=== PATIENT | female | born 1930 | race Caucasian/White ===

== ENCOUNTER 2016-07-16 12:08 | Emergency (ER) | payer MEDICARE, OTHER ==
[~2016-07-16 12:08] MED LIST: /ALEN70TA; /WARF25TA; ACET65TA; PERC5TAB8; PLAV75TA2; SYNT100T; TRAN7.5T; VITAMIN D50000 UNT; ZOCO10TA; [UNRECOGNIZED DRUG - OTHER]; [UNRECOGNIZED DRUG - REMARK]; refresh eye drops
[2016-07-16] MEDS ORDERED: traMADol 50 MG TAB As Ordered ONE (14:38)
--- NOTE | 2016-07-16 14:52 | EDDOCDS ---
Physician Documentation [facility] Name: Priscilla Draper Age: 85 yrs Sex: Female : 1930 Arrival Date: 07/16/2016 Time: 12:08 Bed 7 Private MD: Myrna Bell Disposition: 07/16/16 14:19 Discharged to Home/Self Care. Impression: Pain in thoracic spine. - Condition is Stable. - Discharge Instructions: Back Pain, Adult, Chronic Back Pain. - Prescriptions for Skelaxin 800 mg Oral Tablet - take 0.5 tablet by ORAL route every 8 hours As needed; 20 tablet. Tramadol 50 mg Oral Tablet - take 0.5 tablet by ORAL route 4 times per day MDD: 2 tabs; 10 tablet. - Medication Reconciliation, Local Pharmacy Hours form. - Follow up: Myrna Bell; When: 4 - 5 days; Reason: Recheck today's complaints, Continuance of care. - Problem is an ongoing problem. - Symptoms are unchanged. Historical: - Allergies: Aspirin; Codeine Phosphate; - Home Meds: 1. furosemide 20 mg Oral tab 1 tab once daily (Last dose: 06/15/2016) 2. Vitamin D Oral 1,000 unit daily (Last dose: 07/16/2016 08:00) 3. clorazepate dipotassium 3.75 mg oral tab 1 tab 2 times per day (Last dose: 07/16/2016 07:00) 4. perphenazine-amitriptyline 2-25 mg oral tab 1 tab 2 times per day (Last dose: 07/16/2016 07:00) 5. refresh 1% eye drops as needed (Last dose: 07/16/2016 08:00) 6. Tylenol 325 mg Oral tab 1 tab every 4 hours (Last dose: 07/15/2016) 7. Synthroid 75 mcg Oral tab 1 tab once daily (Last dose: 07/16/2016 07:00) - PMHx: Anxiety; Hypercholesterolemia; aortic valve disorder; - PSHx: Thyroidectomy; Hysterectomy; - Social history: Smoking status: Patient states former smoker of tobacco. Patient/guardian denies using alcohol, street drugs, No barriers to communication noted, The patient speaks fluent [place], Speaks appropriately for age. - Family history: Not pertinent. - : The pt / caregiver states he / she is not on anticoagulants. Home medication list is obtained from the patient. - Exposure Risk Screening:: None identified. Vital Signs: 07/16 12:10 BP 196 / 88; Pulse 83; Resp 18; Temp 98.0(O); Pulse Ox 100% ; Weight 63.5 kg / 139.99 elp lbs; Height 4 ft. 11 in. (149.86 cm); Pain 7/10; 12:10 Body Mass Index 28.28 (63.50 kg, 149.86 cm) elp MDM: 12:44 UA Ordered. EDMS 12:56 UA Reviewed. sd1 14:31 traMADol 25 mg PO once ordered. ke Administered Medications: 14:48 Drug: traMADol 25 mg [tramadol 50 mg tablet (0.5 tabs)] Route: PO; dls 14:51 Follow up: Response: Pt left department before re-evaluation is appropriate dls Signatures: Dispatcher [employer] EDShaila Carvalho MD MD sd1 Lucila Gutierrez, RN RN dls Robert Dudley FNP FNP ke Conner, Teresa RN RN ttb ROSSY
--- NOTE | 2016-07-16 14:52 | EDDOCDS ---
Nurse's Notes [facility] Name: Priscilla Draper Age: 85 yrs Sex: Female : 1930 Arrival Date: 07/16/2016 Time: 12:08 Bed 7 Private MD: Myrna Bell Diagnosis: Pain in thoracic spine Presentation: 07/16 12:20 Presenting complaint: Patient states: left sided flank/back pain x2 weeks. Denies ttb injury. + urinary frequency. Acute neurological deficits are not present. Mechanism of Injury: No Mechanism of Injury. Adult Sepsis Screening: The patient does not have new or worsening altered mentation. Patient's respiratory rate is less than 22. Systolic blood pressure is greater than 100. Patient has a qSOFA score of 0- Negative Sepsis Screen. Suicide/Homicide risk assessment- the patient denies having any suicidal and/or homicidal ideations and does not present with any other emotional, behavioral or mental health complaints. Status: Patient is not a guest services or dependent. Transition of care: patient was not received from another setting of care. 12:20 Acuity: SUDHAKAR Level 3 ttb 12:20 Method Of Arrival: Walkin/Carried/Asstd ttb Triage Assessment: 12:26 General: Appears in no apparent distress, well nourished, well groomed, Behavior is ttb appropriate for age, cooperative, pleasant. Pain: Location: left flank/lower back Pain currently is 7 out of 10 on a pain scale. Quality of pain is described as aching. Neurological: Level of Consciousness is awake, alert. Cardiovascular: Chest pain is denied. Respiratory: No deficits noted. Airway is patent Respiratory effort is even, unlabored, Denies cough, shortness of breath. GI: Denies nausea, vomiting, pain. : Reports urinary frequency. Derm: Skin is normal. Musculoskeletal: Range of motion intact in all extremities. Injury Description: No known injury. Historical: - Allergies: Aspirin; Codeine Phosphate; - Home Meds: 1. furosemide 20 mg Oral tab 1 tab once daily (Last dose: 06/15/2016) 2. Vitamin D Oral 1,000 unit daily (Last dose: 07/16/2016 08:00) 3. clorazepate dipotassium 3.75 mg oral tab 1 tab 2 times per day (Last dose: 07/16/2016 07:00) 4. perphenazine-amitriptyline 2-25 mg oral tab 1 tab 2 times per day (Last dose: 07/16/2016 07:00) 5. refresh 1% eye drops as needed (Last dose: 07/16/2016 08:00) 6. Tylenol 325 mg Oral tab 1 tab every 4 hours (Last dose: 07/15/2016) 7. Synthroid 75 mcg Oral tab 1 tab once daily (Last dose: 07/16/2016 07:00) - PMHx: Anxiety; Hypercholesterolemia; aortic valve disorder; - PSHx: Thyroidectomy; Hysterectomy; - Social history: Smoking status: Patient states former smoker of tobacco. Patient/guardian denies using alcohol, street drugs, No barriers to communication noted, The patient speaks fluent Bermudian, Speaks appropriately for age. - Family history: Not pertinent. - : The pt / caregiver states he / she is not on anticoagulants. Home medication list is obtained from the patient. - Exposure Risk Screening:: None identified. Screenin:49 Screening information is obtained from the patient. Fall risk: No risks identified. dls Assistance ADL's: requires no assistance with activities of daily living. Abuse/DV Screen: The patient / caregiver reports he/she is: not in a situation that causes fear, pain or injury. Nutritional screening: No deficits noted. Advance Directives: Currently, there is no health care proxy. There is no active DNR order. There is no living will. There is no Power of Senior [employer]. Advance directive information has not previously been placed in an [facility] medical record. home support is adequate. Assessment: 13:24 General: Appears in no apparent distress, comfortable, Behavior is appropriate for age, ms18 cooperative. Neurological: Level of Consciousness is awake, alert, obeys commands, Oriented to person, place, time. Respiratory: Airway is patent Respiratory effort is even, unlabored. Derm: Skin is pink, warm & dry. normal. Vital Signs: 12:10 BP 196 / 88; Pulse 83; Resp 18; Temp 98.0(O); Pulse Ox 100% ; Weight 63.5 kg; Height 4 elp ft. 11 in. (149.86 cm); Pain 7/10; 12:10 Body Mass Index 28.28 (63.50 kg, 149.86 cm) elp Vitals: 12:10 Log In Time: July 16, 2016 at 12:08. elp ED Course: 12:10 Patient visited by Akanksha Pierre PCA. elp 12:10 Myrna Bell is Private Physician. elp 12:10 Patient moved to Waiting elp 12:12 Patient visited by Akanksha Pierre PCA. elp 12:12 Patient moved to Pre RCE elp 12:21 Triage Initiated ttb 12:28 Patient visited by Criselda Monique RN. ttb 13:15 Patient moved to Triage 2 ms18 13:24 Patient visited by Virgen Luna,PLACIDO. ms18 13:34 Patient moved to 7 mlb1 13:55 Patient visited by Sonia Schuler PCA. jlf 14:03 [facility] ke 14:03 Patient visited by Robert Dudley FNP. ke 14:03 Patient visited by Robert Dudley FNP. ke 14:18 Myrna Bell is Referral Physician. ke 14:49 The patient / caregiver is instructed regarding the plan of care and ED course. Patient dls has correct armband on for positive identification. Bed in low position. Call light in reach. 14:49 No IV's were initiated during this patient's visit. No procedures done that require dls assistance. Administered Medications: 14:48 Drug: traMADol 25 mg [tramadol 50 mg tablet (0.5 tabs)] Route: PO; dls 14:51 Follow up: Response: Pt left department before re-evaluation is appropriate dls Order Results: Lab Order: UA; SPEC'M 07/16/16 12:30 Test: APPEARANCE, URINE; Value: CLEAR; Range: CLEAR; Status: F Test: COLOR, URINE; Value: STRAW; Range: YELLOW; Status: F Test: PH,URINE; Value: 7.0; Range: 5.0-9.0; Units: UNITS; Status: F Test: SPECIFIC GRAVITY URINE AUTO; Value: 1.003; Range: 1.002-1.035; Status: F Test: PROTEIN, URINE AUTO; Value: NEGATIVE; Range: NEGATIVE; Units: mg/dL; Status: F Test: GLUCOSE, URINE (UA) AUTO; Value: NEGATIVE; Range: NEGATIVE; Units: mg/dL; Status: F Test: KETONE, URINE AUTO; Value: NEGATIVE; Range: NEGATIVE; Units: mg/dL; Status: F Test: UROBILINOGEN, URINE AUTO; Value: 0.2; Range: 0.0-2.0; Units: mg/dL; Status: F Test: BILIRUBIN, URINE AUTO; Value: NEGATIVE; Range: NEGATIVE; Status: F Test: NITRITE, URINE AUTO; Value: NEGATIVE; Range: NEGATIVE; Status: F Test: LEUKOCYTE ESTERASE, URINE AUTO; Value: NEGATIVE; Range: NEGATIVE; Status: F Test: BLOOD, URINE BLOOD; Value: 1+; Range: NEGATIVE; Abnormal: Above high normal; Status: F Test: WBC, URINE AUTO; Value: 1; Range: 0-3; Units: /HPF; Status: F Test: RBC, URINE AUTO; Value: 0; Range: 0-3; Units: /HPF; Status: F Test: BACTERIA, URINE AUTO; Value: NEGATIVE; Range: NEGATIVE; Status: F Test: SQUAMOUS EPITHELIAL CELL UR AU; Value: 0; Range: 0-6; Units: /HPF; Status: F Test: HYALINE CAST, URINE AUTO; Value: 0; Range: 0-1; Units: /LPF; Status: F Outcome: 14:19 Discharge ordered by Provider. 14:49 Discharge Assessment: Patient awake, alert and oriented x 3. No cognitive and/or dls functional deficits noted. Patient verbalized understanding of disposition instructions. patient administered narcotics - yes. Pt provided with safe discharge. The following High Risk Discharge criteria are identified: None. Discharged to home ambulatory, with family. Condition: stable. Discharge instructions given to patient. No special radiology studies were completed. Property sent home with patient. 14:51 Patient left the ED. dls Signatures: Lucila Gutierrez, RN RN Robert Davis, WINDOW DRAPER WINDOW DRAPER Ian Wagn RN RN mlb1 Criselda Monique RN RN ttb Akanksha Pierre, ENROBING MACHINE CORDER ENROBING MACHINE CORDER Sonia Cheney, ENROBING MACHINE CORDER ENROBING MACHINE CORDER jlf Virgen Luna RN RN ms18 MTDD
--- NOTE | 2016-07-18 15:52 | EDDOCDS ---
Physician Documentation [facility] Name: Priscilla Draper Age: 85 yrs Sex: Female : 1930 Arrival Date: 07/16/2016 Time: 12:08 Bed 7 Private MD: Myrna Bell Disposition: 07/16/16 14:19 Discharged to Home/Self Care. Impression: Pain in thoracic spine. - Condition is Stable. - Discharge Instructions: Back Pain, Adult, Chronic Back Pain. - Prescriptions for Skelaxin 800 mg Oral Tablet - take 0.5 tablet by ORAL route every 8 hours As needed; 20 tablet. Tramadol 50 mg Oral Tablet - take 0.5 tablet by ORAL route 4 times per day MDD: 2 tabs; 10 tablet. - Medication Reconciliation, Local Pharmacy Hours form. - Follow up: Myrna Bell; When: 4 - 5 days; Reason: Recheck today's complaints, Continuance of care. - Problem is an ongoing problem. - Symptoms are unchanged. Historical: - Allergies: Aspirin; Codeine Phosphate; - Home Meds: 1. furosemide 20 mg Oral tab 1 tab once daily (Last dose: 06/15/2016) 2. Vitamin D Oral 1,000 unit daily (Last dose: 07/16/2016 08:00) 3. clorazepate dipotassium 3.75 mg oral tab 1 tab 2 times per day (Last dose: 07/16/2016 07:00) 4. perphenazine-amitriptyline 2-25 mg oral tab 1 tab 2 times per day (Last dose: 07/16/2016 07:00) 5. refresh 1% eye drops as needed (Last dose: 07/16/2016 08:00) 6. Tylenol 325 mg Oral tab 1 tab every 4 hours (Last dose: 07/15/2016) 7. Synthroid 75 mcg Oral tab 1 tab once daily (Last dose: 07/16/2016 07:00) - PMHx: Anxiety; Hypercholesterolemia; aortic valve disorder; - PSHx: Thyroidectomy; Hysterectomy; - Social history: Smoking status: Patient states former smoker of tobacco. Patient/guardian denies using alcohol, street drugs, No barriers to communication noted, The patient speaks fluent [place], Speaks appropriately for age. - Family history: Not pertinent. - : The pt / caregiver states he / she is not on anticoagulants. Home medication list is obtained from the patient. - Exposure Risk Screening:: None identified. Vital Signs: 07/16 12:10 BP 196 / 88; Pulse 83; Resp 18; Temp 98.0(O); Pulse Ox 100% ; Weight 63.5 kg / 139.99 elp lbs; Height 4 ft. 11 in. (149.86 cm); Pain 7/10; 12:10 Body Mass Index 28.28 (63.50 kg, 149.86 cm) elp MDM: 12:44 UA Ordered. EDMS 12:56 UA Reviewed. sd1 14:31 traMADol 25 mg PO once ordered. june 15:46 [facility] Payment Agreement was scanned into [employer] and attached to record. jp5 15:47 Financial registration complete. jp5 07/17 06:43 T-Sheet-- Draft Copy was scanned into [employer] and attached to record. hs2 Administered Medications: 07/16 14:48 Drug: traMADol 25 mg [tramadol 50 mg tablet (0.5 tabs)] Route: PO; dls 14:51 Follow up: Response: Pt left department before re-evaluation is appropriate dls Signatures: Dispatcher [employer] EDMI Shaila Kinney MD MD sd1 Lucila Gutierrez, RN RN dls Robert Dudley FNP FNP ke Conner, Teresa RN RN ttb Reggie Tuttle jp5 Argentina Watts, Reg Reg hs2 The chart was reviewed and I authenticate all verbal orders and agree with the evaluation and treatment provided.Attachments: 15:46 [facility] Payment Agreement jp5 07/17 06:43 T-Sheet-- Draft Copy hs2 Chart Complete MTDD
--- NOTE | 2016-07-18 15:52 | EDDOCDS ---
Nurse's Notes [facility] Name: Priscilla Draper Age: 85 yrs Sex: Female : 1930 Arrival Date: 07/16/2016 Time: 12:08 Bed 7 Private MD: Myrna Bell Diagnosis: Pain in thoracic spine Presentation: 07/16 12:20 Presenting complaint: Patient states: left sided flank/back pain x2 weeks. Denies ttb injury. + urinary frequency. Acute neurological deficits are not present. Mechanism of Injury: No Mechanism of Injury. Adult Sepsis Screening: The patient does not have new or worsening altered mentation. Patient's respiratory rate is less than 22. Systolic blood pressure is greater than 100. Patient has a qSOFA score of 0- Negative Sepsis Screen. Suicide/Homicide risk assessment- the patient denies having any suicidal and/or homicidal ideations and does not present with any other emotional, behavioral or mental health complaints. Status: Patient is not a director agricultural services or dependent. Transition of care: patient was not received from another setting of care. 12:20 Acuity: SUDHAKAR Level 3 ttb 12:20 Method Of Arrival: Walkin/Carried/Asstd ttb Triage Assessment: 12:26 General: Appears in no apparent distress, well nourished, well groomed, Behavior is ttb appropriate for age, cooperative, pleasant. Pain: Location: left flank/lower back Pain currently is 7 out of 10 on a pain scale. Quality of pain is described as aching. Neurological: Level of Consciousness is awake, alert. Cardiovascular: Chest pain is denied. Respiratory: No deficits noted. Airway is patent Respiratory effort is even, unlabored, Denies cough, shortness of breath. GI: Denies nausea, vomiting, pain. : Reports urinary frequency. Derm: Skin is normal. Musculoskeletal: Range of motion intact in all extremities. Injury Description: No known injury. Historical: - Allergies: Aspirin; Codeine Phosphate; - Home Meds: 1. furosemide 20 mg Oral tab 1 tab once daily (Last dose: 06/15/2016) 2. Vitamin D Oral 1,000 unit daily (Last dose: 07/16/2016 08:00) 3. clorazepate dipotassium 3.75 mg oral tab 1 tab 2 times per day (Last dose: 07/16/2016 07:00) 4. perphenazine-amitriptyline 2-25 mg oral tab 1 tab 2 times per day (Last dose: 07/16/2016 07:00) 5. refresh 1% eye drops as needed (Last dose: 07/16/2016 08:00) 6. Tylenol 325 mg Oral tab 1 tab every 4 hours (Last dose: 07/15/2016) 7. Synthroid 75 mcg Oral tab 1 tab once daily (Last dose: 07/16/2016 07:00) - PMHx: Anxiety; Hypercholesterolemia; aortic valve disorder; - PSHx: Thyroidectomy; Hysterectomy; - Social history: Smoking status: Patient states former smoker of tobacco. Patient/guardian denies using alcohol, street drugs, No barriers to communication noted, The patient speaks fluent Lebanese, Speaks appropriately for age. - Family history: Not pertinent. - : The pt / caregiver states he / she is not on anticoagulants. Home medication list is obtained from the patient. - Exposure Risk Screening:: None identified. Screenin:49 Screening information is obtained from the patient. Fall risk: No risks identified. dls Assistance ADL's: requires no assistance with activities of daily living. Abuse/DV Screen: The patient / caregiver reports he/she is: not in a situation that causes fear, pain or injury. Nutritional screening: No deficits noted. Advance Directives: Currently, there is no health care proxy. There is no active DNR order. There is no living will. There is no Power of Forwarder Operator. Advance directive information has not previously been placed in an [facility] medical record. home support is adequate. Assessment: 13:24 General: Appears in no apparent distress, comfortable, Behavior is appropriate for age, ms18 cooperative. Neurological: Level of Consciousness is awake, alert, obeys commands, Oriented to person, place, time. Respiratory: Airway is patent Respiratory effort is even, unlabored. Derm: Skin is pink, warm & dry. normal. Vital Signs: 12:10 BP 196 / 88; Pulse 83; Resp 18; Temp 98.0(O); Pulse Ox 100% ; Weight 63.5 kg; Height 4 elp ft. 11 in. (149.86 cm); Pain 7/10; 12:10 Body Mass Index 28.28 (63.50 kg, 149.86 cm) elp Vitals: 12:10 Log In Time: July 16, 2016 at 12:08. elp ED Course: 12:10 Patient visited by Akanksha Pierre PCA. elp 12:10 Myrna Bell is Private Physician. elp 12:10 Patient moved to Waiting elp 12:12 Patient visited by Akanksha Pierre PCA. elp 12:12 Patient moved to Pre RCE elp 12:21 Triage Initiated ttb 12:28 Patient visited by Criselda Monique, PLACIDO. ttb 13:15 Patient moved to Triage 2 ms18 13:24 Patient visited by Virgen Luna,PLACIDO. ms18 13:34 Patient moved to 7 mlb1 13:55 Patient visited by Sonia Schuler PCA. jlf 14:03 [facility] Dud[facility]. ke 14:03 Patient visited by Robert Dudley FNP. ke 14:03 Patient visited by Robert Dudley FNP. ke 14:18 Myrna Bell is Referral Physician. ke 14:49 The patient / caregiver is instructed regarding the plan of care and ED course. Patient dls has correct armband on for positive identification. Bed in low position. Call light in reach. 14:49 No IV's were initiated during this patient's visit. No procedures done that require dls assistance. 15:46 [facility] [place] Payment Agreement was scanned into [employer] and attached to record. jp5 07/17 06:43 T-Sheet-- Draft Copy was scanned into [employer] and attached to record. hs2 Administered Medications: 07/16 14:48 Drug: traMADol 25 mg [tramadol 50 mg tablet (0.5 tabs)] Route: PO; dls 14:51 Follow up: Response: Pt left department before re-evaluation is appropriate dls Order Results: Lab Order: UA; SPEC'M 07/16/16 12:30 Test: APPEARANCE, URINE; Value: CLEAR; Range: CLEAR; Status: F Test: COLOR, URINE; Value: STRAW; Range: YELLOW; Status: F Test: PH,URINE; Value: 7.0; Range: 5.0-9.0; Units: UNITS; Status: F Test: SPECIFIC GRAVITY URINE AUTO; Value: 1.003; Range: 1.002-1.035; Status: F Test: PROTEIN, URINE AUTO; Value: NEGATIVE; Range: NEGATIVE; Units: mg/dL; Status: F Test: GLUCOSE, URINE (UA) AUTO; Value: NEGATIVE; Range: NEGATIVE; Units: mg/dL; Status: F Test: KETONE, URINE AUTO; Value: NEGATIVE; Range: NEGATIVE; Units: mg/dL; Status: F Test: UROBILINOGEN, URINE AUTO; Value: 0.2; Range: 0.0-2.0; Units: mg/dL; Status: F Test: BILIRUBIN, URINE AUTO; Value: NEGATIVE; Range: NEGATIVE; Status: F Test: NITRITE, URINE AUTO; Value: NEGATIVE; Range: NEGATIVE; Status: F Test: LEUKOCYTE ESTERASE, URINE AUTO; Value: NEGATIVE; Range: NEGATIVE; Status: F Test: BLOOD, URINE BLOOD; Value: 1+; Range: NEGATIVE; Abnormal: Above high normal; Status: F Test: WBC, URINE AUTO; Value: 1; Range: 0-3; Units: /HPF; Status: F Test: RBC, URINE AUTO; Value: 0; Range: 0-3; Units: /HPF; Status: F Test: BACTERIA, URINE AUTO; Value: NEGATIVE; Range: NEGATIVE; Status: F Test: SQUAMOUS EPITHELIAL CELL UR AU; Value: 0; Range: 0-6; Units: /HPF; Status: F Test: HYALINE CAST, URINE AUTO; Value: 0; Range: 0-1; Units: /LPF; Status: F Outcome: 14:19 Discharge ordered by Provider. 14:49 Discharge Assessment: Patient awake, alert and oriented x 3. No cognitive and/or dls functional deficits noted. Patient verbalized understanding of disposition instructions. patient administered narcotics - yes. Pt provided with safe discharge. The following High Risk Discharge criteria are identified: None. Discharged to home ambulatory, with family. Condition: stable. Discharge instructions given to patient. No special radiology studies were completed. Property sent home with patient. 14:51 Patient left the ED. dls Signatures: Lucila Gutierrez RN RN Robert Davis, ADOPTION WORKER ADOPTION WORKER Ian Wang RN RN mlb1 Criselda Monique RN RN ttb Akanksha Pierre, PROFESSOR OF CRIMINAL JUSTICE PROFESSOR OF CRIMINAL JUSTICE elp Sonia Schuler, PROFESSOR OF CRIMINAL JUSTICE PROFESSOR OF CRIMINAL JUSTICE antoniaf Virgen Luna RN RN ms18 Reggie Tuttle 5 Argentina Watts, Reg Reg hs2 Chart Complete MTDD
--- NOTE | 2016-07-18 15:52 | EDDOCDS ---
Physician Documentation [facility] Name: Priscilla Draper Age: 85 yrs Sex: Female : 1930 Arrival Date: 07/16/2016 Time: 12:08 Bed 7 Private MD: Myrna Bell Disposition: 07/16/16 14:19 Discharged to Home/Self Care. Impression: Pain in thoracic spine. - Condition is Stable. - Discharge Instructions: Back Pain, Adult, Chronic Back Pain. - Prescriptions for Skelaxin 800 mg Oral Tablet - take 0.5 tablet by ORAL route every 8 hours As needed; 20 tablet. Tramadol 50 mg Oral Tablet - take 0.5 tablet by ORAL route 4 times per day MDD: 2 tabs; 10 tablet. - Medication Reconciliation, Local Pharmacy Hours form. - Follow up: Myrna Bell; When: 4 - 5 days; Reason: Recheck today's complaints, Continuance of care. - Problem is an ongoing problem. - Symptoms are unchanged. Historical: - Allergies: Aspirin; Codeine Phosphate; - Home Meds: 1. furosemide 20 mg Oral tab 1 tab once daily (Last dose: 06/15/2016) 2. Vitamin D Oral 1,000 unit daily (Last dose: 07/16/2016 08:00) 3. clorazepate dipotassium 3.75 mg oral tab 1 tab 2 times per day (Last dose: 07/16/2016 07:00) 4. perphenazine-amitriptyline 2-25 mg oral tab 1 tab 2 times per day (Last dose: 07/16/2016 07:00) 5. refresh 1% eye drops as needed (Last dose: 07/16/2016 08:00) 6. Tylenol 325 mg Oral tab 1 tab every 4 hours (Last dose: 07/15/2016) 7. Synthroid 75 mcg Oral tab 1 tab once daily (Last dose: 07/16/2016 07:00) - PMHx: Anxiety; Hypercholesterolemia; aortic valve disorder; - PSHx: Thyroidectomy; Hysterectomy; - Social history: Smoking status: Patient states former smoker of tobacco. Patient/guardian denies using alcohol, street drugs, No barriers to communication noted, The patient speaks fluent Fijian, Speaks appropriately for age. - Family history: Not pertinent. - : The pt / caregiver states he / she is not on anticoagulants. Home medication list is obtained from the patient. - Exposure Risk Screening:: None identified. Vital Signs: 07/16 12:10 BP 196 / 88; Pulse 83; Resp 18; Temp 98.0(O); Pulse Ox 100% ; Weight 63.5 kg / 139.99 elp lbs; Height 4 ft. 11 in. (149.86 cm); Pain 7/10; 12:10 Body Mass Index 28.28 (63.50 kg, 149.86 cm) elp MDM: 12:44 UA Ordered. EDMS 12:56 UA Reviewed. sd1 14:31 traMADol 25 mg PO once ordered. june 15:46 [facility] Payment Agreement was scanned into [employer] and attached to record. jp5 15:47 Financial registration complete. jp5 07/17 06:43 T-Sheet-- Draft Copy was scanned into [employer] and attached to record. hs2 Administered Medications: 07/16 14:48 Drug: traMADol 25 mg [tramadol 50 mg tablet (0.5 tabs)] Route: PO; dls 14:51 Follow up: Response: Pt left department before re-evaluation is appropriate dls Signatures: Dispatcher [employer] EDLA Shaila Kinney MD MD sd1 Lucila Gutierrez, RN RN dls Robert Dudley FNP FNP ke Conner, Teresa RN RN ttb Reggie Tuttle jp5 Argentina Watts, Reg Reg hs2 The chart was reviewed and I authenticate all verbal orders and agree with the evaluation and treatment provided.Attachments: 15:46 [facility] Payment Agreement jp5 07/17 06:43 T-Sheet-- Draft Copy hs2 Chart Complete MTDD
== END 2016-07-16 14:51 | disposition home or self-care (01) ==
LOC: M ED 12:08
DX: M54.9 Dorsalgia, unspecified (principal); F41.9 Anxiety disorder, unspecified; E78.00 Pure hypercholesterolemia, unspecified; I35.8 Other nonrheumatic aortic valve disorders; Z87.891 Personal history of nicotine dependence; Z79.899 Other long term (current) drug therapy; Z88.6 Allergy status to analgesic agent; Z88.5 Allergy status to narcotic agent

== ENCOUNTER 2016-12-11 08:44 | Emergency (ER) | payer MEDICARE, OTHER ==
[~2016-12-11] VITALS: Ht 147.3 cm; Wt 63.0 kg
[~2016-12-11 08:44] MED LIST changes: -[UNRECOGNIZED DRUG - OTHER]; +[UNRECOGNIZED DRUG - OTHER] PO
[2016-12-11] MEDS ORDERED: LEVO75TA4 PO (09:14)
[2016-12-11] MEDS ORDERED: CLOR37TA PO (09:14)
[2016-12-11] MEDS ORDERED: VITA2000 PO (09:18)
[2016-12-11 10:38] LABS: EOS # 0.2 K/mm3 (0.0-0.50); LARGE UNSTAINED CELL # 0.2 K/mm3 (0.0-0.4); LARGE UNSTAINED CELL % 2.8 % (0.0-4.0); LYMPH # 1.6 K/mm3 (1.5-4.5); LYMPH % 28.3 % (24.0-44.0); MEAN CORPUSCULAR HEMOGLOBIN 32.1 pg (27.0-33.0); MEAN CORPUSCULAR HGB CONC 33.9 g/dl (32.0-36.5); MEAN CORPUSCULAR VOLUME 94.8 fl (80.0-96.0); MONO # 0.4 K/mm3 (0.0-0.8); MONO % 8.3 % (0.0-5.0); NEUTROPHILS % 56.6 % (36.0-66.0); PLATELET COUNT, AUTOMATED 265 k/mm3 (150-450); RED CELL DISTRIBUTION WIDTH 12.4 % (11.5-14.5); WHITE BLOOD COUNT 5.3 K/mm3 (4.0-10.0)
--- NOTE | 2016-12-11 11:22 | REP ---
Clinical: Dizziness. Comparison: 01/20/2015 . Findings: Age-related atrophy and microvascular ischemic changes are appreciated. The ventricles and sulci are symmetric. Molina-white differentiation is maintained. There is no evidence for acute intracranial hemorrhage, mass/mass effect, pathology or infarction. No extra-axial fluid collection. Calvarium is intact. Paranasal sinuses and mastoid air cells are clear. Impression: Age related atrophy and microvascular ischemic changes. No acute intracranial hemorrhage, infarction, or mass/mass effect. Signed by Dale Cruz MD 12/11/2016 11:14 A
--- NOTE | 2016-12-11 11:37 | REP ---
Clinical: Chest pain with crackles . Comparison: 12/31/2015 . Findings: The mediastinum and cardiac silhouette are stable and within normal limits for portable technique. The lung casiano are clear without acute consolidation, effusion, or pneumothorax. Skeletal structures are intact. Impression: No focal consolidation or acute cardiopulmonary process appreciated. Signed by Dale Cruz MD 12/11/2016 11:28 A
[2016-12-11 13:51] VITALS: BP 135/78
--- NOTE | 2016-12-11 22:11 | ECGEPIP ---
Stationary ECG Study [facility] Test Date: 2016-12-11 Pat Name: VELMA GOMEZ Department: Room: - Gender: F Supervisor Rides: ifeanyi : 1930 Requested By: PEDRITO CLARK Order Number: [id number] Reading MD: Geraldo Luke Measurements Intervals [place] Rate: 59 P: 39 DE: 155 QRS: 53 QRSD: 98 T: 54 QT: 441 QTc: 437 Interpretive Statements SINUS BRADYCARDIA COMPARED TO THE LAST 4 TRACINGS IN THE SYSTEM, HEART RATE IS SLOWER OTHERWISE NO SIGNIFICANT CHANGES Electronically Signed On 12-11-2016 22:11:20 EDT by Geraldo Luke
== END 2016-12-11 13:51 | disposition home or self-care (01) ==
LOC: M ED 10:39
DX: R00.1 Bradycardia, unspecified (principal); Z79.899 Other long term (current) drug therapy; Z88.8 Allergy status to other drugs, medicaments and biological substances; Z88.5 Allergy status to narcotic agent

== ENCOUNTER → 2018-02-20 | Outpatient (CLI) | payer MEDICARE, OTHER | LOC: M ADAMS 13:02 | DX: M25.561 Pain in right knee (principal); M79.671 Pain in right foot | CPT/HCPCS: 73564 ==

== ENCOUNTER 2018-10-02 20:29 | Emergency (ER) | payer MEDICARE, OTHER ==
[~2018-10-02 20:29] MED LIST changes: +CLOR37TA PO; +LEVO75TA4 PO; +PROT1TAB2 PO; +TRIA2TA PO; +VITA2000 PO
[2018-10-02] MEDS ORDERED: ALPRAZolam 0.25 MG TAB PO ONE (21:30)
[2018-10-02] MEDS ORDERED: XANA0.25 PO (22:31)
[2018-10-02 22:39] VITALS: BP 144/70
== END 2018-10-02 23:14 | disposition home or self-care (01) ==
LOC: M ED 20:29
DX: F41.9 Anxiety disorder, unspecified (principal); Z79.899 Other long term (current) drug therapy; Z79.890 Hormone replacement therapy; Z88.5 Allergy status to narcotic agent; Z88.8 Allergy status to other drugs, medicaments and biological substances

== ENCOUNTER 2018-10-07 13:06 | Emergency (ER) | payer MEDICARE, OTHER ==
[~2018-10-07] VITALS: Ht 149.9 cm; Wt 53.2 kg
[~2018-10-07 13:06] MED LIST changes: -/WARF25TA; +COUM1TAB18; +XANA0.25 PO
[2018-10-07] MEDS ORDERED: CLOR37TA PO ×2 (14:11→14:27)
[2018-10-07] MEDS ORDERED: ALPRAZolam 0.5 MG TAB PO ONE (14:15)
[2018-10-07 15:11] VITALS: BP 189/84
== END 2018-10-07 15:21 | disposition home or self-care (01) ==
LOC: EDBD 13:06 → M ED 13:06 → EDUNIT# 13:06 → M ED 15:21
DX: F41.1 Generalized anxiety disorder (principal); R51 Headache; E07.9 Disorder of thyroid, unspecified; Z87.891 Personal history of nicotine dependence; Z88.5 Allergy status to narcotic agent; Z88.8 Allergy status to other drugs, medicaments and biological substances; Z79.899 Other long term (current) drug therapy

== ENCOUNTER → 2018-12-16 | Outpatient (REF) | payer MEDICARE, OTHER | LOC: M LAB REF 19:39 | PROVIDERS: ATTEND Physician Assistant | DX: N39.0 Urinary tract infection, site not specified (principal) ==

== ENCOUNTER 2019-04-25 15:17 | Emergency (ER) | payer MEDICARE, OTHER ==
[~2019-04-25] VITALS: Ht 149.9 cm; Wt 53.6 kg
[2019-04-25] MEDS ORDERED: LORazepam 2 MG/ML VIAL (J2060) IV STA (16:07)
[2019-04-25] MEDS ORDERED: NS 1,000 ML IV SCH (16:07)
--- NOTE | 2019-04-25 16:40 | REP ---
Portable chest, 04:22 p.m., single AP view with the patient upright: Comparison is 12/11/2016. There is diffuse interstitial coarsening, unchanged, compatible with fibrosis. There are no infiltrates, effusions, nodules or masses. Cardial mediastinal silhouette and skeletal structures are unremarkable. Impression: Chronic interstitial coarsening compatible with fibrosis. No acute cardiopulmonary findings. Electronically Signed by Jw Rodriguez MD 04/25/2019 04:32 P
[2019-04-25 16:47] LABS: BASO # 0.1 10^3/uL (0.0-0.2); EOS # 0.4 10^3/uL (0.0-0.5); EOS % 5.7 % (0.0-3.0); HEMATOCRIT 41.4 % (36.0-47.0); HEMOGLOBIN 14.2 g/dl (12.0-15.5); LYMPH # 2.4 10^3/uL (1.5-5.0); LYMPH % 30.7 % (24.0-44.0); MEAN CORPUSCULAR HEMOGLOBIN 32.3 pg (27.0-33.0); MEAN CORPUSCULAR HGB CONC 34.3 g/dl (32.0-36.5); MEAN CORPUSCULAR VOLUME 94.3 fl (80.0-96.0); MONO # 0.8 10^3/uL (0.0-0.8); MONO % 9.8 % (0.0-5.0); NEUTROPHILS % 52.5 % (36.0-66.0); PLATELET COUNT, AUTOMATED 269 10^3/uL (150-450); RED BLOOD COUNT 4.39 10^6/uL (4.00-5.40); WHITE BLOOD COUNT 7.7 10^3/uL (4.0-10.0)
[2019-04-25] MEDS ORDERED: BRONCHW PO (16:58)
[2019-04-25] MEDS ORDERED: AMIT10TA PO (16:58)
[2019-04-25] MEDS ORDERED: PERP2TAB16 PO (16:58)
[2019-04-25 17:03] LABS: INR 0.95; PROTHROMBIN TIME 12.4 SECONDS (11.8-14.0)
[2019-04-25 17:25] LABS: ALBUMIN 3.4 GM/DL (3.2-5.2); ALT/SGPT 25 U/L (12-78); BILIRUBIN,DIRECT < 0.1 MG/DL (0.0-0.2); BILIRUBIN,TOTAL 0.4 MG/DL (0.2-1.0); BLOOD UREA NITROGEN 12 MG/DL (7-18); CALCIUM LEVEL 8.9 MG/DL (8.8-10.2); CARBON DIOXIDE LEVEL 30 MEQ/L (21-32); CHLORIDE LEVEL 103 MEQ/L (98-107); CK-MB VALUE MASS 1.1 NG/ML (<3.6); CPK CREATINE PHOSPHOKINASE 71 U/L (26-192); CREATININE FOR GFR 0.73 MG/DL (0.55-1.30); FREE T4 1.24 NG/DL (0.76-1.46); GLOMERULAR FILTRATION RATE > 60.0 (>32); GLUCOSE, FASTING 79 MG/DL (70-100); MB/CK RELATIVE INDEX 1.55 (< OR =4); POTASSIUM SERUM 5.1 MEQ/L (3.5-5.1); SODIUM LEVEL 140 MEQ/L (136-145); TOTAL PROTEIN 6.5 GM/DL (6.4-8.2); TROPONIN I < 0.02 NG/ML (< 0.10)
--- NOTE | 2019-04-25 19:06 | ECGEPIP ---
[facility] - ED Test Date: 2019-04-25 Pat Name: VELMA GOMEZ Department: Room: - Gender: Female Non Profit Director: HERNAN : 1930 Requested By: FAWN Khan Order Number: [id number] Reading MD: Damon Cardoan Measurements Intervals [place] Rate: 69 P: 51 GA: 142 QRS: 61 QRSD: 102 T: 42 QT: 400 QTc: 430 Interpretive Statements SINUS RHYTHM BASELINE ARTIFACT AFFECTS INTERPRETATION Electronically Signed on 04-25-2019 19:05:59 EDT by Damon Cardona
[2019-04-25 20:01] VITALS: BP 158/69
== END 2019-04-25 20:13 | disposition home or self-care (01) ==
LOC: M ED 15:17
DX: F41.9 Anxiety disorder, unspecified (principal); Z79.899 Other long term (current) drug therapy; Z88.5 Allergy status to narcotic agent; Z88.8 Allergy status to other drugs, medicaments and biological substances
CPT/HCPCS: 71045; 80048; 80076; 82550; 82553; 84439; 84443; 84484; 85025; 85610; 93005; 93041; 94760; 96361; 96374; 99285; J2060

== ENCOUNTER 2021-02-07 18:23 | Emergency (ER) | payer MEDICARE, OTHER ==
[~2021-02-07] VITALS: Ht 147.3 cm; Wt 54.5 kg
[~2021-02-07 18:23] MED LIST changes: +AMIT10TA7 PO; +BRONCHW PO; +PERP2TAB16 PO
[2021-02-07] MEDS ORDERED: LIDOCAINE W/EPINEPHRINE 1% 20ML VIAL SC ONE (20:30)
[2021-02-07] MEDS ORDERED: BOOSTRIX/ADACEL VACCINE (DIPHTH/PERTUSS/ACELL/TETANUS) 0.5ML SYR IM ONE (20:35)
[2021-02-07 22:07] VITALS: BP 121/62
== END 2021-02-07 22:08 | disposition home or self-care (01) ==
LOC: M ED 18:23
DX: S81.812A Laceration without foreign body, left lower leg, initial encounter (principal); W01.198A Fall on same level from slipping, tripping and stumbling with subsequent striking against other object, initial encounter; Y92.018 Other place in single-family (private) house as the place of occurrence of the external cause; E03.9 Hypothyroidism, unspecified; Z85.850 Personal history of malignant neoplasm of thyroid; F41.9 Anxiety disorder, unspecified; Z88.5 Allergy status to narcotic agent; Z88.8 Allergy status to other drugs, medicaments and biological substances; Z79.899 Other long term (current) drug therapy; Z79.890 Hormone replacement therapy